=== PATIENT | female | born 1950 | race Caucasian/White ===

== ENCOUNTER → 2016-11-21 | Outpatient (CLI) | payer MEDICAID ==
[~2016-11-21] MED LIST: ACETAMINOPHEN PO; BONIVA150 MG PO; PRILOSEC PO
--- NOTE | ~2016-11-21 | MY11 ---
[facility] A Service of [facility] RADIOLOGY TEXT RESULTS PATIENT: LEANDER TRIPP LOCATION: [facility] : 54 UNIT #: [id number] AGE: [address]: HAMILTON MORA MD SEX: F ORDER DR: [id number] [facility] [address] [place], [place] [address] [id number] O MR#: [id number] Acc #: [id number] NAME: LEANDER TRIPP : 1950 SEX: F STUDY DATE/TIME: 11/21/2016 9:40 UNIT: [facility] ROOM: STUDY DESCRIPTION: MY Mammogram Screening Dig Billy Attending Physician: Hamilton Mora M.D. Ordering Physician: Hamilton Mora M.D. Primary Care Physician: Hamilton Mora M.D. MEDICAL IMAGING REPORT This report is preliminary unless electronic signature is present EXAM Bilateral digital screening mammogram with CAD, 11/21/2016. INDICATION 66-year-old female for routine screening. No reported problems. No personal history of breast cancer. Family history positive in the patient's niece. History of cyst removal bilaterally in the . TECHNIQUE CC and MLO views of the breast were obtained and reviewed with an FDA-approved CAD device. COMPARISON STUDIES 06/07/2015, 05/29/2014, 11/20/2012 FINDINGS Breast parenchyma is heterogeneously dense. This degrades sensitivity of screening mammography. The pattern is unchanged. Scar markers are present in the upper outer aspects of both breasts. There is no new dominant nodule, mass, or suspicious cluster of microcalcifications. Benign calcifications are present. There has been no significant change. IMPRESSION Benign screening mammogram. 1 year followup recommended. Patients over the age of 40 are entered into a reminder system with target due date for the next mammogram. A result letter will also be sent to the patient. BIRADS: 2 Benign finding. [facility] A Service of [facility] & [facility] RADIOLOGY TEXT RESULTS PATIENT: LEANDER TRIPP LOCATION: [facility] : [birth year] UNIT #: [id number] AGE: [address]: AHMILTON MORA MD SEX: F ORDER DR: Dictated by... Cameron Humphrise M.D. THIS IS AN ELECTRONICALLY VERIFIED REPORT Cameron Humphries M.D. at 11/21/2016 5:24 PM OZZY/sejal TD: 11/21/2016 11:24 JOB #: [id number] MEDICAL IMAGING REPORT Page 1 of 1 COPY
== END | disposition home or self-care (01) ==
LOC: CWCC 09:26
DX: Z12.31 Encounter for screening mammogram for malignant neoplasm of breast (principal); Z80.3 Family history of malignant neoplasm of breast; Z98.890 Other specified postprocedural states
CPT/HCPCS: G0202

== ENCOUNTER → 2017-03-09 | Outpatient (CLI) | payer MEDICAID ==
--- NOTE | ~2017-03-09 | US49 ---
[facility] A Service of [facility] & [facility] RADIOLOGY TEXT RESULTS PATIENT: LEANDER TRIPP LOCATION: [facility] : [birth year] UNIT #: [id number] AGE: [address]: ADE KUMAR APRN SEX: F ORDER DR: [id number] [facility] [address] [place], [place] [address] [id number] O MR#: [id number] Acc #: [id number] NAME: LEANDER TRIPP : 1950 SEX: F STUDY DATE/TIME: 03/09/2017 13:18 UNIT: [facility] ROOM: STUDY DESCRIPTION: US Extremity Non Vasc Complete Attending Physician: Ade Kumar Np Referring Physician: Ade Kumar Np Ordering Physician: Ade Kumar Np Primary Care Physician: Yumiko Blackwell M.D. MEDICAL IMAGING REPORT This report is preliminary unless electronic signature is present EXAM Left supraclavicular ultrasound INDICATIONS Palpable area in the left suprahilar clavicular region for 2 weeks. TECHNIQUE Wilcox-scale and color Doppler sonographic images were obtained through the area concern. FINDINGS Within the area of concern, patient is noted to have a lymph node measuring up to the 1 x 1.3 x 0.3 cm, which does have the appearance of a lymph node. There is a fatty hilum. I suspect it is a benign reactive node but if it persists, suggest further characterization with CT of the neck soft tissue with contrast. IMPRESSION Within the area of concern, patient does appear to have a lymph node measuring up to 1.3 x 0.3 x 1 cm. I suspect it is a benign reactive node but if it persists, further evaluation with CT of the neck soft tissue with contrast is suggested. Dictated by... Evi Denise M.D. THIS IS AN ELECTRONICALLY VERIFIED REPORT Evi Denise M.D. at 03/12/2017 4:54 PM AFF/pcl TD: 03/09/2017 20:41 JOB #: [id number] [facility] A Service of [facility] & [facility] RADIOLOGY TEXT RESULTS PATIENT: LEANDER TRIPP [facility]ATION: [facility] #: [id number] : 54 UNIT #: [id number] AGE: [address]: ADE KUMAR APRN SEX: F ORDER DR: MEDICAL IMAGING REPORT Page 1 of 1 COPY
== END | disposition home or self-care (01) ==
LOC: CGUS 12:45
DX: R59.0 Localized enlarged lymph nodes (principal)
CPT/HCPCS: 76881

== ENCOUNTER → 2017-03-20 | Outpatient (CLI) | payer MEDICAID ==
--- NOTE | ~2017-03-20 | CT114 ---
[facility] A Service of [facility] RADIOLOGY TEXT RESULTS PATIENT: LEANDER TRIPP [facility] : [birth year] UNIT #: [id number] AGE: [address]: ADE KUMAR APRN SEX: F ORDER DR: [id number] [facility] [address] [place], [place] [address] [id number] O MR#: [id number] Acc #: [id number] NAME: LEANDER TRIPP : 1950 SEX: F STUDY DATE/TIME: 03/20/2017 16:13 UNIT: [facility] ROOM: STUDY DESCRIPTION: CT Soft Tissue Neck W Cont Attending Physician: Ade Kumar Np Referring Physician: Ade Kumar Np Ordering Physician: Ade Kumar Np Primary Care Physician: Yumiko Blackwell M.D. MEDICAL IMAGING REPORT This report is preliminary unless electronic signature is present EXAM Soft tissue neck CT with contrast DATE OF STUDY: 03/20/2017 PROCEDURE Axial contrast-enhanced soft tissue neck CT with multiplanar reformats. The CT exam was performed with one or more of the following radiation dose reduction techniques: automatic exposure control, adjustment of mA and/or kV according to patient size, and iterative reconstruction. COMPARISON None. CLINICAL HISTORY Left supraclavicular lymphadenopathy for 1 month. FINDINGS There is no suspicious adenopathy. Tiny normal-sized cervical lymph nodes are seen. Perhaps 1 of these corresponds to the palpable abnormality, but no suspicious adenopathy is identified. There is no potential primary mass. There is slight plaque at the carotid bifurcations and while the study is not optimized for assessing carotid stenosis, findings suggest no significant stenosis in either internal carotid by NASCET criteria. Non detailed images of the larynx are symmetric and unremarkable. The bony structures are remarkable for spinal degenerative change but there is no fracture or bone erosion or destruction. The lung apices are remarkable for emphysematous changes. IMPRESSION [facility] A Service of [facility] RADIOLOGY TEXT RESULTS PATIENT: LEANDER TRIPP [facility] : [birth year] UNIT #: [id number] AGE: [address]: ADE KUMAR APRN SEX: F ORDER DR: 1. Essentially negative soft tissue neck CT with contrast. There is no definite imaging correlate for the palpable abnormality. There are a few tiny normal-sized cervical lymph nodes but no suspicious adenopathy. 2. There are spinal degenerative changes and emphysematous changes in the lung apices as well as plaque at the cervical carotid bifurcations, though the findings here suggest no significant stenosis in either internal carotid by NASCET criteria, despite the fact that the exam is not optimized for evaluation of carotid stenosis. Dictated by... Enrike Romero M.D. THIS IS AN ELECTRONICALLY VERIFIED REPORT Enrike Romero M.D. at 03/23/2017 4:07 PM CYNTHIA/horacio TD: 03/21/2017 09:18 JOB #: [id number] MEDICAL IMAGING REPORT Page 1 of 1 COPY
[2017-03-20 23:11] LABS: POC - CREATININE 0.96 mg/dL (0.44-1.03); POC - GFR >60.0 mL/min (>60)
== END | disposition home or self-care (01) ==
LOC: CCAT 14:38
PROVIDERS: Nurse Practitioner
DX: R59.0 Localized enlarged lymph nodes (principal); M47.892 Other spondylosis, cervical region; I65.29 Occlusion and stenosis of unspecified carotid artery
CPT/HCPCS: 70491; 82565; Q9967